=== PATIENT | male | born 1990 | race Caucasian/White ===

== ENCOUNTER 2024-03-22 12:48 | Emergency (ER) | payer SELFPAY ==
[~2024-03-22] VITALS: Ht 165.1 cm; Wt 86.5 kg
[2024-03-22 12:58] VITALS: O2SAT 99
[2024-03-22 13:27] LABS: BASOPHILS % 0.2 % (0.0-2.0); CHLORIDE 104 mEq/L (98-107); HEMATOCRIT. 44.1 % (42.0-52.0); HEMOGLOBIN. 15.1 g/dL (14.0-18.0); LYMPHOCYTES % 8.6 % (20.0-50.0); MEAN CORPUSCULAR HEMOGLOBIN 31.7 pg (28.0-32.0); MEAN CORPUSCULAR HGB CONC 34.2 g/dL (31.0-37.0); MEAN CORPUSCULAR VOLUME 92.6 fL (80.0-94.0); MEAN PLATELET VOLUME 8.1 fl (7.4-10.4); MONOCYTES % 8.1 % (2.0-8.0); NEUTROPHILS % 82.1 % (40.0-76.0); PLATELET 211 x1000/uL (130-400); POTASSIUM 4.3 mEq/L (3.5-5.1); RED BLOOD CELL COUNT 4.76 mill/uL (4.7-6.1); RED CELL DISTRIBUTION WIDTH 14.4 % (11.6-14.6); SODIUM 138 mEq/L (136-145); WHITE BLOOD COUNT 15.4 x1000/uL (4.5-11.0)
[2024-03-22 13:28] LABS: CALCIUM 9.9 mg/dL (8.7-10.4); CARBON DIOXIDE 26 mEq/L (21-32)
[2024-03-22 13:33] LABS: CREATININE 1.1 mg/dL (0.6-1.3); GLUCOSE 99 mg/dL (70-105); UREA NITROGEN BLOOD 10 mg/dL (9-23)
[2024-03-22 13:36] LABS: CLARITY URINE CLEAR (CLEAR); COLOR URINE YELLOW (YELLOW); GLUCOSE URINE NEGATIVE (NEGATIVE); KETONES URINE NEGATIVE (NEGATIVE); LEUKOCYTE ESTERASE URINE NEGATIVE (NEGATIVE); NITRITE URINE NEGATIVE (NEGATIVE); OCCULT BLOOD URINE NEGATIVE (NEGATIVE); PH URINE 7.5 (4.5-8.0); PROTEIN URINE NEGATIVE (NEGATIVE); SPECIFIC GRAVITY URINE 1.007 (1.005-1.030); UROBILINOGEN URINE 0.2 E.U./dL (0.2-1.0)
[2024-03-22] MEDS ORDERED: ONDANSETRON HCL 4MG/2ML INJ IV STA (13:44)
[2024-03-22] MEDS ORDERED: MORPHINE SULFATE 4 MG/ML INJ (FOR IV/IM USE) IV STA (13:44)
[2024-03-22] MEDS: SODIUM CHLORIDE 0.9% 1,000 ML IV ONE (13:45)
[2024-03-22 14:59] VITALS: TEMP 98.7
[2024-03-22 15:01] LABS: ALANINE AMINOTRANSFERASE 47 IU/L (10-49); ASPARTATE AMINOTRANSFERASE 33 IU/L (<34)
[2024-03-22 15:02] LABS: ALBUMIN 4.7 g/dL (3.2-4.8); BILIRUBIN DIRECT 0.3 mg/dL (<=3.0); BILIRUBIN TOTAL 0.9 mg/dL (0.1-1.0); PROTEIN TOTAL 7.6 g/dL (6.0-8.3)
[2024-03-22] MEDS ORDERED: AMOX1TAB16 MT (15:54)
[2024-03-22] MEDS: MORPHINE SULFATE 4 MG/ML INJ (FOR IV/IM USE) IV NR (16:14)
[2024-03-22] MEDS: ONDANSETRON HCL 4MG/2ML INJ IV NR (16:14)
[2024-03-22 16:35] VITALS: BP 115/78; PULSE 89; RESP 16
[2024-03-22] MEDS ORDERED: IOHEXOL-300 100 ML BOTTLE ONE (17:19)
== END 2024-03-22 16:36 | disposition home or self-care (01) ==
LOC: ER 12:48
DX: K57.92 Diverticulitis of intestine, part unspecified, without perforation or abscess without bleeding (principal)
CPT/HCPCS: 80076; 80048; 81003; 83690; 85025; 36415; 74177; 96361; 96374; 96375; 99285; Q9967; J2405; J2270; J7030; Z7610 ×3